=== PATIENT | male | born 1990 | race Caucasian/White ===

== ENCOUNTER 2017-10-26 17:07 | Emergency (ER) | payer OTHER ==
--- NOTE | 2017-10-26 18:04 | EDPHY ---
H & P Time Seen by Provider: 10/26/17 17:48 HPI/ROS: CHIEF COMPLAINT: "I need help " HISTORY OF PRESENT ILLNESS: 27-year-old male history of alcoholism, arrives via private vehicle with his parents stating that he has been binge drinking recently triggered by his girlfriend moving to [place]. PHYSICAL EXAM (Prior to examination, patient consented to physical exam, hands were washed and my usual and customary physical exam procedures followed) 1) GENERAL: Well-developed, well-nourished, alert and oriented. Tearful, crying.. 2) HEAD: Normocephalic 3) HEENT: sclera anicteric 4) LUNGS: Breathing comfortably. Smoking Status: Current every day smoker Constitutional: Initial Vital Signs Temperature (C) 36.5 C 10/26/17 17:30 Heart Rate 118 H 10/26/17 17:30 Respiratory Rate 24 H 10/26/17 17:30 Blood Pressure 136/95 H 10/26/17 17:30 O2 Sat (%) 97 10/26/17 17:30 O2 Delivery Mode Room Air Allergies/Adverse Reactions: No Known Allergies Allergy (Verified 10/26/17 17:26) Home Medications: Medication Instructions Recorded GABAPENTIN 400 mg PO 10/26/17 MDM/Departure - MDM Medications Given: Discontinued Medications Chlordiazepoxide (Librium 25 Mg Prepack#6) 1 btl TAKEHOME EDNOW ONE Stop: 10/26/17 18:07 Last Admin: 10/26/17 18:29 Dose: 1 btl ED Course/Re-evaluation: The patient would like to [facility]. His parents will drive him there. He and parents feel comfortable with this plan. Doubt delirium tremens. Care of patient under supervision of secondary supervising physician Dr Roberson . - Depart Disposition: Home, Routine, Self-Care Clinical Impression: Alcohol dependence Qualifiers: Substance use status: unspecified alcohol-induced disorder Qualified Code(s): F10.29 - Alcohol dependence with unspecified alcohol-induced disorder Condition: Good Instructions: Chlordiazepoxide (By mouth), Abuse of Alcohol (ED) Referrals: [facility] [Outside] - 1 day without fail (Go directly to the [facility].)
[2017-10-26] MEDS ORDERED: CHLORDIAZEPOXIDE 25MG PREPK#6 BTL TAKEHOME ONE (18:06)
[2017-10-26 18:44] VITALS: BP 144/80; PULSE 81; RESP 16; TEMP 98.6; O2SAT 98
== END 2017-10-26 18:45 | disposition home or self-care (01) ==
DX: F10.29 Alcohol dependence with unspecified alcohol-induced disorder (principal); F17.200 Nicotine dependence, unspecified, uncomplicated

== ENCOUNTER 2017-10-27 04:07 | Emergency (ER) | payer OTHER ==
[2017-10-27 04:12] VITALS: RESP 16
--- NOTE | 2017-10-27 04:18 | EDPHY ---
H & P Stated Complaint: wants meds for wd was at [facility] earlier but left on his own accord HPI/ROS: HPI CHIEF COMPLAINT: Alcohol withdraw, anxiety, From the [facility]. HISTORY OF PRESENT ILLNESS: This patient is a 27-year-old male, alcohol, binge drinks whiskey, his last drink was over 24 hr ago. He has been staying at the [facility]. He was [facility] to obtain a Librium for possible withdrawal Of note upon arrival here in emergency room the patient is not tachycardic. He is not tremulous. He appears well nontoxic in no acute distress. Does not appear to be going through significant withdrawal. However he does state he feels anxious and give him a dose of Librium 50 mg p.o.. And a take-home pack. I do feel comfortable allowing him to go back to the [facility]. Past Medical History: Daily alcohol use, anxiety Past Surgical History: No surgery Social History: Noncontributory Family History: Noncontributory ROS REVIEW OF SYSTEMS: A comprehensive 10 point review of systems is otherwise negative aside from elements mentioned in the history of present illness. Exam Constitutional appears well nontoxic, triage nursing summary reviewed, vital signs reviewed, awake/alert. Eyes normal conjunctivae and sclera, EOMI, PERRLA. HENT normal inspection, atraumatic, moist mucus membranes, no epistaxis, neck supple/ no meningismus, no raccoon eyes. Respiratory clear to auscultation bilaterally, normal breath sounds, no respiratory distress, no wheezing. Cardiovascular rate normal, regular rhythm, no murmur, no edema, distal pulses normal. Gastrointestinal soft, non-tender, no rebound, no guarding, normal bowel sounds, no distension, no pulsatile mass. Genitourinary no CVA tenderness. Musculoskeletal no midline vertebral tenderness, full range of motion, no calf swelling, no tenderness of extremities, no meningismus, good pulses, neurovascularly intact. Skin pink, warm, & dry, no rash, skin atraumatic. Neurologic awake, alert and oriented x 3, AAOx3, moves all 4 extremities equally, motor intact, sensory intact, CN II-XII intact, normal cerebellar, normal vision, normal speech. Psychiatric normal mood/affect. Heme/Lymph/Immune no lymphadenopathy. Differential Diagnosis: Includes but is not limited to in a particular order alcohol withdrawal, anxiety Medical Decision Making: Plan for this patient 50 mg p.o. Librium. Librium take-home pack. Disposition back to the [facility]. Source: Patient - Personal History Current Tetanus/Diphtheria Vaccine: Unsure Current Tetanus Diphtheria and Acellular Pertussis (TDAP): Unsure - Medical/Surgical History Hx Asthma: No Hx Chronic Respiratory Disease: No Hx Diabetes: No Hx Cardiac Disease: No Hx Renal Disease: No Hx Cirrhosis: No Hx Alcoholism: Yes Hx HIV/AIDS: No Hx Splenectomy or Spleen Trauma: No Other PMH: ANXIETY, COLLARBONE SURG, TESTICLE SURG, EAR TUBES, ETOH - Social History Smoking Status: Current every day smoker Constitutional: Initial Vital Signs Temperature (C) 36.6 C 10/27/17 04:10 Heart Rate 102 H 10/27/17 04:10 Respiratory Rate 16 10/27/17 04:10 Blood Pressure 124/82 H 10/27/17 04:10 O2 Sat (%) 95 10/27/17 04:10 O2 Delivery Mode Room Air Allergies/Adverse Reactions: No Known Allergies Allergy (Verified 10/26/17 17:26) Home Medications: Medication Instructions Recorded GABAPENTIN 400 mg PO 10/26/17 Departure - Departure Disposition: Home, Routine, Self-Care Clinical Impression: Alcohol withdrawal Qualifiers: Complication of substance-induced condition: uncomplicated Qualified Code(s): F10.230 - Alcohol dependence with withdrawal, uncomplicated Condition: Good Instructions: Alcohol Withdrawal (ED), Chlordiazepoxide/Clidinium (By mouth) Referrals: Leonel Villatoro MD [Primary Care Provider] - As per Instructions
[2017-10-27] MEDS ORDERED: CHLORDIAZEPOXIDE 25MG PREPK#6 BTL TAKEHOME ONE (04:22)
[2017-10-27] MEDS ORDERED: chlordiazePOXIDE 25 MG CAP PO ONE ×2 (04:22→06:52)
[2017-10-27] MEDS ORDERED: ONDANSETRON DISINTEGRATING 4 MG TAB PO ONE (05:27)
[2017-10-27] MEDS ORDERED: ONDANSETRON DISINTEGRATING 4 MG TAB ONE (05:27)
[2017-10-27] MEDS ORDERED: chlordiazePOXIDE 25 MG CAP ONE (06:52)
[2017-10-27 07:11] VITALS: BP 130/78; PULSE 85; TEMP 98.6; O2SAT 97
== END 2017-10-27 07:11 | disposition home or self-care (01) ==
DX: F10.230 Alcohol dependence with withdrawal, uncomplicated (principal); F17.200 Nicotine dependence, unspecified, uncomplicated

== ENCOUNTER → 2018-01-01 | Outpatient (CLI) | payer OTHER | LOC: FIMAGING 10:06 | PROVIDERS: ATTEND Family Medicine | DX: R94.5 Abnormal results of liver function studies (principal); F10.10 Alcohol abuse, uncomplicated ==